=== PATIENT | male | born 1930 | race Caucasian/White ===

== ENCOUNTER 2017-09-19 19:04 | Emergency (ER) | payer MEDICARE, OTHER ==
[~2017-09-19] VITALS: Ht 175.3 cm; Wt 88.5 kg
[~2017-09-19 19:04] MED LIST: ARICEPT5 MG PO; ATENOLOL50 MG PO; AVODART0.5 MG PO; CITALOPRAM HBR20 MG PO; COMBIVENT RESPIM4 GM IH; FLOMAX0.4 MG PO; FOLBIC TABLET1 EACH PO; NIFEDIPINE ER30 M1 PO; RANITIDINE HCL150 MG PO; ULORIC80 MG PO; ZETIA10 MG PO
--- NOTE | 2017-09-19 20:07 | Diagnostic Imaging Report ---
FOOT RIGHT COMPLETE - 3 views HISTORY: Pain. Infected toe. Great toe swelling. COMPARISON: None available. FINDINGS: Bones: No acute displaced fracture. Osseous alignment is within normal limits. 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 There is however lucency at the proximal phalanx of the great toe. Moderate degenerative changes at DIP and PIP joints. Soft tissues: The soft tissues appear unremarkable. 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 There is however focal osteopenia and lucency in the proximal phalanx of the great toe. With superimpose soft tissue swelling, underlying osteomyelitis cannot be excluded. Signed by: Dr. Ab Negron M.D. on 09/19/2017 8:03 PM
[2017-09-19 20:42] LABS: BASOPHILS % 0.5 % (0.0-1.0); EOSINOPHILS # (AUTO) 0.1 (0.0-0.4); EOSINOPHILS % 2.3 % (0.0-6.0); HEMATOCRIT 39.6 % (38.2-49.6); HEMOGLOBIN 13.4 g/dL (14.0-18.0); LYMPHOCYTES # (AUTO) 1.2 (1.0-3.2); LYMPHOCYTES % 19.7 % (18.0-39.1); MEAN CORPUSCULAR HEMOGLOBIN 32.1 pg (28-32); MEAN CORPUSCULAR HGB CONC 33.8 g/dL (31-35); MONOCYTES # (AUTO) 0.6 (0.2-0.8); MONOCYTES % 9.3 % (4.4-11.3); NEUTROPHILS # (AUTO) 4.2 (2.1-6.9); PLATELET COUNT 166 x10e3/uL (140-360); RED BLOOD COUNT 4.17 x10e6/uL (4.3-5.7); RED CELL DISTRIBUTION WIDTH 13.3 % (11.7-14.4)
[2017-09-19 21:00] LABS: ANION GAP 13.8 mmol/L (8-16); CALCIUM 8.5 mg/dL (8.4-10.2); CREATININE, SERUM 2.5 mg/dL (0.72-1.25); POTASSIUM 3.8 mmol/L (3.5-5.1)
== END 2017-09-19 22:05 | disposition home or self-care (01) ==
LOC: ER 19:04
DX: S90.111A Contusion of right great toe without damage to nail, initial encounter (principal); F03.90 Unspecified dementia, unspecified severity, without behavioral disturbance, psychotic disturbance, mood disturbance, and anxiety; F32.9 Major depressive disorder, single episode, unspecified; M10.9 Gout, unspecified
CPT/HCPCS: 36415; 80048; 85025; 99284